=== PATIENT | male | born 1955 | race Caucasian/White ===

== ENCOUNTER 2024-11-06 14:49 | Outpatient (AMB) | payer MEDICARE, SELFPAY ==
--- NOTE | 2024-11-06 14:56 | MHC.PC.OV ---
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 Intake Note: patient is scheduled to establish care with pcp Security Attendant Required: No Allergies No Known Allergies Allergy (Verified 11/06/24 15:03) Medication List - Last Reconciled 11/06/24 by Roman Baugh MD No Known Home Meds Tobacco use date assessed: 11/06/24 Fall risk assessment: No Falls in past year Last assessed Fall Risk: 11/06/24 Dental Screening Dental Screen Date: 11/06/24 Did you have a dental visit in the last 12 months?: Yes Did you have a dental problem in the last 6 months where you did not have access to dental care?: No Was dental information given to patient?: No 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 ?? Prior PCP:? [facility] Last office visit/CPE:? 2 yrs Acute issue(s):? Elevated Lipids ?? PMHx:? Mildly elevated Cholesterol, Allergies SurgHx:? Hernia repair, Back Surgery x 2, L Meniscus x 2 FHx:?Mom: Brain CA. Dad: Aortic Aneurysm rupture. Sister: Alzhiemers. Brother: a-fib. Brother: Parkinsons. SocHx:? Nonsmoker. EtOH: 2-3 dr per day. No drugs PFSH Medical History Tear of meniscus of left knee Ruptured lumbar disc Surgical History H/O hernia repair Social History Housing: House Patient Tobacco Use Status: Never used Tobacco e-Cigarette/Vaping Use: Currently Using Frequency of e-Cigarette/Vaping Use: cannabis Use of substances other than those prescribed or required for medical reasons: No service: No Current occupational status: retired Current occupational exposures/hazards: No Cognitive needs: No Hearing needs: Yes Vision needs: Yes Questionnaire PHQ-9 Over the last 2 weeks, how often have you been bothered by any of the following problems? 1. Little interest or pleasure in doing things: not at all 2. Feeling down, depressed, or hopeless: not at all 3. Trouble falling or staying asleep, or sleeping too much: not at all 4. Feeling tired or having little energy: not at all 5. Poor appetite or overeating: not at all 6. Feeling bad about yourself - or that you are a failure or have let yourself or your family down: not at all 7. Trouble concentrating on things, such as reading the newspaper or watching television: not at all 8. Moving or speaking so slowly that other people could have noticed. Or the opposite - being so fidgety or restless that you have been moving around a lot more than usual: not at all 9. Thoughts that you would be better off or of hurting yourself in some way: not at all Total score: 0 Depression Screening Interpretation: Negative Depression Screening Done: Yes 40248 - PHQ-9 Billing: Yes Source: Developed by Drs. Vic Gaines, Komal Shaw, Skip Al and colleagues, with an educational wild from [facility]. Thrive Questionnaire Date Thrive assessed: 11/06/24 I am a: Patient What is your living situation today?: I have a steady place to live Within the past 12 months, did the food you bought not last and you didn't have the money to get more?: Never true Within the past 12 months, did you worry whether your food would run out before you got money to buy more?: Never true Do you have trouble paying for medicines?: No Do you have trouble getting transportation to medical appointments?: No Do you have trouble paying your heating and electricity bill?: No Do you have trouble taking care of your child, family member or friend?: No Do you have trouble with day-to-day activities such as bathing, preparing meals, shopping, managing finances, etc.?: No Are you currently unemployed and looking for a job?: No Are you interested in more education?: No Please select the resources that you would like help with: None Currently or been in a relationship where the following occur: No concerns reported THRIVE Score: 0 AUDIT C Alcohol Use Questionnaire (AUDIT-C) 1. How often do you have a drink containing alcohol?: 4 or more times a week 2. How many drinks containing alcohol do you have on a typical day when you are drinking?: 3 or 4 3. How often do you have six or more drinks on one occasion?: Never Total Score: 5 Score Reviewed/Action Taken: Yes AARON-7 AMB Questionnaire AARON-7 Date AARON - 7 assessed: 11/06/24 Feeling nervous, anxious, or on edge: 0 = Not at all Not being able to stop or control worryin = Not at all Worrying too much about different things: 0 = Not at all Trouble relaxin = Not at all Being so restless that it is hard to sit still: 0 = Not at all Becoming easily annoyed or irritable: 0 = Not at all Feeling afraid as if something awful might happen: 0 = Not at all Total AARON-7 score (0-4 normal; 5-9 mild; 10-14 moderate; 15-21 severe): 0 Source: Developed by Drs. Vic Gaines, Komal Shaw, Skip Al and colleagues, with an educational wild from [facility]. AARON-7 Assessment Billing AARON-7 Assessment Tool: AARON-7 Assessment 93039 Review of Systems Const Denies chills, Denies fatigue, Denies fever(s), Denies headache(s) and Denies weakness ENT Denies dizziness and Denies headache(s) Card Denies chest pain, Denies lightheadedness, Denies dyspnea and Denies other (Palpitations) Resp Denies cough, Denies dyspnea, Denies wheezing and Denies other ( shortness of breath) Musc Denies numbness and Denies tingling Neuro Denies dizziness, Denies headache(s), Denies numbness, Denies tingling, Denies paresthesias and Denies weakness Psych Denies anxiety and Denies depression Endo Denies fatigue Aller/Immun Denies wheezing Physical exam (Primary Care) Vital Signs: Last Vital Signs Temp 98.3 F 11/06/24 15:04 Pulse 64 11/06/24 15:04 Resp 14 11/06/24 15:04 BP 120/64 11/06/24 15:04 Pulse Ox 96 11/06/24 15:04 Oxygen Delivery Method Room Air 11/06/24 15:04 BMI result Body Mass Index 25.8 Tobacco/Smoking Status: Tobacco use Status Tobacco use date assessed 11/06/24 11/06/24 15:07 Patient Tobacco Use Status Never used Tobacco 11/06/24 15:07 e-Cigarette/Vaping Use Currently Using 11/06/24 15:07 PHQ-9: PHQ-9 Score PHQ-9: Total score 0 11/06/24 15:16 Depression Screening Interpretation: Negative Thrive Assessment: Date of Thrive Assessment Date Thrive assessed 11/06/24 11/06/24 15:01 Currently or been in a relationship where the following occur: No concerns reported Const General: no acute distress and well developed Nutritional Appearance: well nourished Orientation/consciousness: patient oriented x3 HENMT Head: Yes normocephalic and Yes atraumatic Eyes General: appearance normal, both eyes and all related structures Pupils: Equal, round and reactive pupils present EOM: EOMs intact bilaterally Resp Effort & Inspection: normal respiratory effort Auscultation: clear to auscultation bilaterally Cardio Rate: regular rate Rhythm: regular rhythm Heart sounds: S1 normal heart sound present, S2 normal heart sound present, no gallops, no murmurs and no rubs Neuro General: patient oriented x3 and gait normal Cranial nerves: Yes Equal, round and reactive pupils present Psych Affect: normal affect Coding Level of Care Code New Pt Level 3 (13647) Diagnoses Elevated LDL cholesterol level E78.00 Allergies T78.40XA H/O hernia repair Z98.890; Z87.19 Immunization counseling Z71.85 Laboratory exam ordered as part of routine general medical examination Z00.00 Additional Codes AARON-7 Assessment Billing - AARON-7 Assessment Tool: AARON-7 Assessment 45787 ([id number]) PHQ-9 - 85520 - PHQ-9 Billing: Yes ([id number]) Assessment & Plan Assessment & Plan (1) Elevated LDL cholesterol level: Code(s): E78.00 - Pure hypercholesterolemia, unspecified Category: Medical (2) Allergies: Code(s): T78.40XA - Allergy, unspecified, initial encounter Category: Medical (3) H/O hernia repair: Code(s): Z98.890 - Other specified postprocedural states; Z87.19 - Personal history of other diseases of the digestive system Category: Surgical (4) Immunization counseling: Code(s): Z71.85 - Encounter for immunization safety counseling Category: Medical (5) Laboratory exam ordered as part of routine general medical examination: Code(s): Z00.00 - Encounter for general adult medical examination without abnormal findings Category: Medical Plan 69-year-old?male?presents?to?establish?care Patient?notes?history?of?elevated?lipids Will?recheck?with?his?lab?drawn Reviewed?immunizations.??He?is?up-to-date Orders: Orders Lipid Panel Today Z00.00 - Encounter for general adult medical examination without abnormal findings Prostate Specific Antigen Scr Today Z12.5 - Encounter for screening for malignant neoplasm of prostate Comprehensive [place]. Panel Fast Today Z00.00 - Encounter for general adult medical examination without abnormal findings Complete Blood Count Auto Diff Today Z00.00 - Encounter for general adult medical examination without abnormal findings Microalbumin, Random (w Creat) Today I10 - Essential (primary) hypertension UA CC w/rflx Micro + Cult Today Z00.00 - Encounter for general adult medical examination without abnormal findings TSH reflex Free T4 Today Z00.00 - Encounter for general adult medical examination without abnormal findings
[2024-11-06 15:04] VITALS: BP 120/64; PULSE 64; RESP 14; TEMP 36.8; O2SAT 96; BMI 25.8
== END 2024-11-06 15:33 | disposition home or self-care (01) ==
PROVIDERS: PCP Family Medicine; Visit Provider Family Medicine
DX: E78.00 Pure hypercholesterolemia, unspecified (principal); T78.40XA Allergy, unspecified, initial encounter; Z98.890 Other specified postprocedural states; Z87.19 Personal history of other diseases of the digestive system; Z71.85 Encounter for immunization safety counseling; Z00.00 Encounter for general adult medical examination without abnormal findings

== ENCOUNTER → 2024-11-06 14:49 | Outpatient (BNVA) | payer MEDICARE, SELFPAY | PROVIDERS: PCP Family Medicine; Visit Provider Family Medicine | DX: Z00.01 Encounter for general adult medical examination with abnormal findings (principal); E78.00 Pure hypercholesterolemia, unspecified; T78.40XA Allergy, unspecified, initial encounter; Z71.85 Encounter for immunization safety counseling; Z87.19 Personal history of other diseases of the digestive system; Z98.890 Other specified postprocedural states | CPT/HCPCS: 96127; 99202 ==

== ENCOUNTER 2025-01-27 08:05 | Outpatient (REF) | payer MEDICARE, SELFPAY ==
[2025-01-27 11:42] LABS: MANUAL DIFF FLAG NO
[2025-01-27 11:57] LABS: Hematocrit 46.1 % (42.0-52.0); Hemoglobin 15.0 g/dl (14.0-18.0); Imm Gran Abs Auto 0.02 X10*3/uL (0.00-0.03); Imm Gran Pct Auto 0.3 % (0.0-0.4); Lymphocytes Absolute Auto 1.4 X10*3/uL (1.2-4.9); Mean Corpuscular HGB Conc 32.5 g/dl (31.0-36.0); Mean Corpuscular Hemoglobin 30.5 pg (27.0-33.0); Mean Corpuscular Volume 93.9 fL (80.0-98.0); NRBC Abs Auto 0.000 X10*3/uL (0.0-0.012); NRBC Pct Auto 0.0 /100WBC (0.0-0.2); Platelet Count 266 X10*3/uL (160-400); Red Blood Count 4.91 X10*6/uL (4.60-5.80); White Blood Count 6.4 X10*3/uL (4.8-10.8)
[2025-01-27 12:38] LABS: Alanine Aminotransferase 21 U/L (0-40); Albumin Level 4.3 g/dL (3.5-5.0); Alkaline Phosphatase 58 U/L (39-117); Anion Gap 10 (12-20); Aspartate Amino Transferase 31 U/L (5-37); Blood Urea Nitrogen 19 mg/dL (9-16); Calcium 8.8 mg/dL (8.4-10.2); Carbon Dioxide 27 mmol/L (22-29); Chloride 109 mmol/L (96-108); Cholesterol 198 mg/dL (<200); Estimated Glomerular Filt Rate > 60; HDL Cholesterol 68 mg/dL (>40); Potassium 4.4 mmol/L (3.3-5.1); Sodium 142 mmol/L (135-145); Total Protein 7.2 g/dL (6.5-8.0); Triglycerides 90 mg/dL (<150)
[2025-01-27 15:12] LABS: Appearance Urine Turbid; Glucose Urine UA Negative (Negative); PH 5.5 (5.0-9.0); Specific Gravity - Urine 1.025 (1.005-1.025); UMIC TRIGGER UACC YES
[2025-01-27 15:19] LABS: UACC Culture Trigger YES
[2025-01-27 16:38] LABS: Microalbum/Creatinine Ratio Ur 5.8 ug/mg cr (<30)
== END 2025-01-27 08:06 | disposition home or self-care (01) ==
LOC: HO.WFDLDS 08:05
PROVIDERS: Visit Provider Family Medicine
DX: Z00.00 Encounter for general adult medical examination without abnormal findings (principal); Z12.5 Encounter for screening for malignant neoplasm of prostate; I10 Essential (primary) hypertension; R82.90 Unspecified abnormal findings in urine
CPT/HCPCS: 36415; 80053; 80061; 81001; 82043; 82570; 84153; 84443; 85025; 87086

== ENCOUNTER 2025-02-25 08:10 | Outpatient (REF) | payer MEDICARE, SELFPAY ==
--- OUTSIDE RECORDS SUMMARY | 2025-02-25 08:16 | XMS_ITS ---
Author Name [facility] Organization Unknown Care Team Organization Name Specialty Phone Email Start Date End Da thomas [facility] 05/24/2022 4
[2025-02-25 11:27] LABS: Appearance Urine Clear; Glucose Urine UA Negative (Negative); PH 8.0 (5.0-9.0); Specific Gravity - Urine 1.015 (1.005-1.025); UMIC TRIGGER UACC YES
== END 2025-02-25 08:11 | disposition home or self-care (01) ==
LOC: HO.WFDLDS 08:10
PROVIDERS: Visit Provider Family Medicine
DX: Z00.00 Encounter for general adult medical examination without abnormal findings (principal); R97.20 Elevated prostate specific antigen [PSA]; Z12.5 Encounter for screening for malignant neoplasm of prostate
CPT/HCPCS: 36415; 81001; 84153

== ENCOUNTER 2025-02-28 11:47 | Outpatient (AMB) | payer MEDICARE, SELFPAY ==
--- NOTE | 2025-02-28 11:50 | A.OFFPC_ITS ---
Vital Signs 02/28/25 11:56 Height 6 ft Weight 189 lb 4 oz BMI 25.7 BP 120/84 Blood Pressure Location Rt brachial Position Sitting Respiration 14 Pulse 68 Pulse Source Pulse Oximeter Temp 98.1 F Temp Source Temporal Artery Scan Pulse Oximetry (%) 97 Oxygen Delivery Method Room Air Intake Visit Reasons: CPE with f.u labs and health maint. Intake Note: David presents in his office today for his annual physical, lab review and health maintenance. Allergies No Known Allergies Allergy (Verified 02/28/25 11:54) Medication List - Last Reconciled 02/28/25 by Roman Baugh MD cetirizine (Zyrtec) 10 mg PO DAILY PRN Tobacco use date assessed: 02/28/25 Dental Screening Dental Screen Date: 02/28/25 Did you have a dental visit in the last 12 months?: Yes Did you have a dental problem in the last 6 months where you did not have access to dental care?: No Was dental information given to patient?: Patient has dentist HPI CPE with f.u labs and health maint. HPI Details 69 y/o male presents for a CPE with f/u labs and health maint. Labs drawn 01/27/25. Reviewed labs with pt. Fasting glucose elevated at 105. Triglycerides 90. TC 198. LDL 112. HDL 68. PSA elevated at 6.57. Repeat PSA 3.86. A1c today 02/28/25 is Reports a slight tremor on his R hand. He notes FHx of lewy body dementia. HPI Comments History of Present Illness Details Documentation assistance for Roman Baugh MD, was provided by Anthony Stevenson,? Culture Room Worker on 02/28/2025 at 12:49 PM EST. I, Dr. Baugh, have read, observed, and verified documentation. ? PFSH Medical History (Updated 02/28/25 @ 12:55 by Anthony Stevenson) Tear of meniscus of left knee Ruptured lumbar disc Surgical History (Updated 11/06/24 @ 15:23 by Anthony Stevenson) H/O hernia repair Social History (Updated 02/28/25 @ 11:55 by Fely Engel MA) Housing: House Alcohol intake: current Patient Tobacco Use Status: Never used Tobacco e-Cigarette/Vaping Use: Never Used Second Hand Smoke Exposure: No service: No Current occupational status: retired Current occupational exposures/hazards: No Cognitive needs: No Hearing needs: Yes Vision needs: Yes Questionnaire PHQ-9 Over the last 2 weeks, how often have you been bothered by any of the following problems? 1. Little interest or pleasure in doing things: not at all 2. Feeling down, depressed, or hopeless: not at all 3. Trouble falling or staying asleep, or sleeping too much: not at all 4. Feeling tired or having little energy: not at all 5. Poor appetite or overeating: not at all 6. Feeling bad about yourself - or that you are a failure or have let yourself or your family down: not at all 7. Trouble concentrating on things, such as reading the newspaper or watching television: not at all 8. Moving or speaking so slowly that other people could have noticed. Or the opposite - being so fidgety or restless that you have been moving around a lot more than usual: not at all 9. Thoughts that you would be better off or of hurting yourself in some way: not at all Total score: 0 Depression Screening Interpretation: Negative Depression Screening Done: Yes 09039 - PHQ-9 Billing: Yes Source: Developed by Drs. Vic Gaines, Komal Shaw, Skip Al and colleagues, with an educational wild from [employer]. Thrive Questionnaire Date Thrive assessed: 02/28/25 I am a: Patient What is your living situation today?: I have a steady place to live Within the past 12 months, did the food you bought not last and you didn't have the money to get more?: Never true Within the past 12 months, did you worry whether your food would run out before you got money to buy more?: Never true Do you have trouble paying for medicines?: No Do you have trouble getting transportation to medical appointments?: No Do you have trouble paying your heating and electricity bill?: No Do you have trouble taking care of your child, family member or friend?: No Do you have trouble with day-to-day activities such as bathing, preparing meals, shopping, managing finances, etc.?: No Are you currently unemployed and looking for a job?: No Are you interested in more education?: No Please select the resources that you would like help with: None Currently or been in a relationship where the following occur: No concerns reported THRIVE Score: 0 AUDIT C Alcohol Use Questionnaire (AUDIT-C) 1. How often do you have a drink containing alcohol?: 2-3 times a week 2. How many drinks containing alcohol do you have on a typical day when you are drinking?: 3 or 4 3. How often do you have six or more drinks on one occasion?: Never Total Score: 4 AARON-7 AMB Questionnaire AARON-7 Date AARON - 7 assessed: 02/28/25 Feeling nervous, anxious, or on edge: 1 = Several days Not being able to stop or control worryin = Not at all Worrying too much about different things: 0 = Not at all Trouble relaxin = Not at all Being so restless that it is hard to sit still: 0 = Not at all Becoming easily annoyed or irritable: 0 = Not at all Feeling afraid as if something awful might happen: 0 = Not at all Total AARON-7 score (0-4 normal; 5-9 mild; 10-14 moderate; 15-21 severe): 1 Source: Developed by Drs. Vic Gaines, Komal Shaw, Skip Al and colleagues, with an educational wild from [employer]. AARON-7 Assessment Billing AARON-7 Assessment Tool: AARON-7 Assessment 63460 Review of Systems Const Denies chills, Denies fatigue, Denies fever(s), Denies headache(s) and Denies weakness Eyes Denies change in vision ENT Denies dizziness, Denies headache(s), Denies hearing loss, Denies nasal congestion, Denies sinus pain, Denies sinus pressure and Denies sore throat Card Denies chest pain, Denies lightheadedness, Denies dyspnea and Denies other (palpitations) Resp Denies cough, Denies dyspnea and Denies wheezing GI Denies abdominal pain, Denies melena, Denies hematochezia, Denies change in bowel habits, Denies dyspepsia and Denies nausea Denies hematuria and Denies dysuria Musc Denies abnormal gait, Denies myalgias, Denies arthralgias, Denies numbness and Denies tingling Skin/Breast Denies rash, Denies unusual bruising and Denies wounds Neuro Denies abnormal gait, Denies dizziness, Denies headache(s), Denies memory loss, Denies numbness, Denies Sensory deficit (Neuro), Denies tingling and Denies weakness Psych Denies anxiety, Denies depression and Denies memory loss Endo Denies cold intolerance, Denies fatigue, Denies heat intolerance, Denies polydipsia and Denies polyuria Conor/Lymph Denies easy bleeding and Denies easy bruising Aller/Immun Denies wheezing Physical exam (Primary Care) Vital Signs: Last Vital Signs Temp 98.1 F 02/28/25 11:56 Pulse 68 02/28/25 11:56 Resp 14 02/28/25 11:56 BP 120/84 02/28/25 11:56 Pulse Ox 97 02/28/25 11:56 Oxygen Delivery Method Room Air 02/28/25 11:56 BMI result Body Mass Index 25.7 Tobacco/Smoking Status: Tobacco use Status Tobacco use date assessed 02/28/25 02/28/25 12:00 Patient Tobacco Use Status Never used Tobacco 02/28/25 11:55 e-Cigarette/Vaping Use Never Used 02/28/25 11:55 PHQ-9: PHQ-9 Score PHQ-9: Total score 0 02/28/25 12:01 Depression Screening Interpretation: Negative Thrive Assessment: Date of Thrive Assessment Date Thrive assessed 02/28/25 02/28/25 11:52 Currently or been in a relationship where the following occur: No concerns reported Const General: no acute distress, well developed, alert and awake Nutritional Appearance: well nourished Orientation/consciousness: patient oriented x3 HENMT Head: Yes normocephalic and Yes atraumatic Ears: hearing grossly normal bilaterally and TM's normal bilaterally General nose exam: Normal external nose present and Normal nares present Mouth: Normal oral and palatal mucosa present and moist mucous membranes Teeth and gingiva: dentition normal Throat: Yes posterior oropharynx normal Eyes General: appearance normal, both eyes and all related structures Pupils: Equal, round and reactive pupils present and Pupil accommodation reflex normal EOM: EOMs intact bilaterally Neck Neck: Yes normal visual inspection, Yes no lymphadenopathy and Yes trachea midline Thyroid: Thyroid normal Carotids: no bruits Lymphatic: no lymphadenopathy noted Chest Chest palpation & inspection: normal inspection of the chest Resp Effort & Inspection: normal respiratory effort Auscultation: clear to auscultation bilaterally Cardio Rate: regular rate Rhythm: regular rhythm Heart sounds: S1 normal heart sound present, S2 normal heart sound present, no gallops, no murmurs and no rubs Bruits: no abdominal aortic bruits and no carotid bruits GI Palpation (GI): No Abdominal aortic bruit present, Soft to palpation, nontender, No hepatosplenomegaly present and No Rebound tenderness present Auscultation: normal bowel sounds General: Yes no CVA tenderness Back/Spine/Pelvis Back: no CVA tenderness Cervical Spine: cervical ROM normal and No Cervical spine tenderness Thoracic/Lumbar Spine: thoraco-lumbar ROM normal, No pain with thoraco-lumbar ROM, No thoracic spinal tenderness and No lumbar spinal tenderness Skin Lesions: no lesions Rashes: no rashes Trauma: no lacerations or abrasions Wounds: no wounds Nails: normal Neuro General: patient oriented x3 Cranial nerves: Yes Equal, round and reactive pupils present Cognition (Neuro): normal cognition Gait exam (Neuro): Normal gait present Motor exam (neuro): 5/5 motor strength present throughout Sensory Exam: No Sensory deficit (Neuro) Deep tendon reflexes (DTR's): Right patellar reflex intensity grade: 2+ and Left patellar reflex intensity grade: 2+ Extrem General: Yes normal to inspection and No edema Psych Appearance: grossly normal Affect: normal affect Attitude: cooperative Thought process: Normal thought process present Results AMB Hemoglobin A1c AMB Hemoglobin A1c 5.2 % Last Edit by Fely Engel MA on 02/28/25 12:51 Coding Level of Care Code Est Pt Level 3 (42413) Est Pt Prev Care >65y(25885) Diagnoses Adult general medical exam Z00.00 Elevated LDL cholesterol level E78.00 Elevated PSA R97.20 Tremor R25.1 Elevated fasting blood sugar R73.01 Family history of dementia Z81.8 Screening for prostate cancer Z12.5 Screening for colon cancer Z12.11 Additional Codes AARON-7 Assessment Billing - AARON-7 Assessment Tool: AARON-7 Assessment 96069 ([id number]) PHQ-9 - 80308 - PHQ-9 Billing: Yes ([id number]) Assessment & Plan Assessment & Plan (1) Adult general medical exam: Code(s): Z00.00 - Encounter for general adult medical examination without abnormal findings Category: Medical Plan: 69-year-old male presents for complete physical exam Encouraged healthy diet with active lifestyle and plenty of exercise (2) Elevated LDL cholesterol level: Code(s): E78.00 - Pure hypercholesterolemia, unspecified Category: Medical Plan: Mildly elevated LDL cholesterol Encouraged a diet lower in saturated fats and cholesterol (3) Elevated PSA: Code(s): R97.20 - Elevated prostate specific antigen [PSA] Category: Medical Plan: PSA elevated and on repeat is at upper range of normal. He denies any urinary symptoms. Will recheck with next blood draw 6 months. (4) Tremor: Code(s): R25.1 - Tremor, unspecified Category: Medical Plan: Patient is spouse notes tremor at right arm. On exam patient has fine tremor bilateral hands Patient notes that he and brother with tremor and diagnosed with Lewy body dementia Referred to neurology (5) Elevated fasting blood sugar: Code(s): R73.01 - Impaired fasting glucose Category: Medical Plan: Mildly elevated fasting blood sugar A1c 5.5% is towards upper limits of normal Encouraged a diet lower in sugars and starches Will monitor (6) Family history of dementia: Code(s): Z81.8 - Family history of other mental and behavioral disorders Category: Medical Plan: As above (7) Screening for prostate cancer: Code(s): Z12.5 - Encounter for screening for malignant neoplasm of prostate Category: Medical Plan: As above (8) Screening for colon cancer: Code(s): Z12.11 - Encounter for screening for malignant neoplasm of colon Category: Medical Plan: Patient is due for repeat colonoscopy in 2025 Referred back to his facilities maintenance manager, Carolyn Ashford Orders: Orders Prostate Specific Antigen Scr Today R97.20 - Elevated prostate specific antigen [PSA], Z12.5 - Encounter for screening for malignant neoplasm of prostate Comprehensive [place]. Panel Fast Today E78.00 - Pure hypercholesterolemia, unspecified, Z00.00 - Encounter for general adult medical examination without abnormal findings Hemoglobin A1c Today R73.01 - Impaired fasting glucose AMB Hemoglobin A1c Today R73.01 - Impaired fasting glucose, Z13.9 - Encounter for screening, unspecified Lipid Panel Today E78.00 - Pure hypercholesterolemia, unspecified, Z00.00 - Encounter for general adult medical examination without abnormal findings Referrals Gastroenterology Referral Z12.11 - Encounter for screening for malignant neoplasm of colon Neurology Referral R25.1 - Tremor, unspecified
[2025-02-28 11:56] VITALS: BP 120/84; PULSE 68; RESP 14; TEMP 36.7; O2SAT 97; BMI 25.7
== END 2025-02-28 12:54 | disposition home or self-care (01) ==
LOC: HO.HMCFM 11:48
PROVIDERS: PCP Family Medicine; Visit Provider Family Medicine
DX: Z00.00 Encounter for general adult medical examination without abnormal findings (principal); E78.00 Pure hypercholesterolemia, unspecified; R97.20 Elevated prostate specific antigen [PSA]; R25.1 Tremor, unspecified; R73.01 Impaired fasting glucose; Z81.8 Family history of other mental and behavioral disorders; Z12.5 Encounter for screening for malignant neoplasm of prostate; Z12.11 Encounter for screening for malignant neoplasm of colon

== ENCOUNTER → 2025-02-28 11:47 | Outpatient (BNVA) | payer MEDICARE, SELFPAY | PROVIDERS: PCP Family Medicine; Visit Provider Family Medicine | DX: Z00.00 Encounter for general adult medical examination without abnormal findings (principal); E78.00 Pure hypercholesterolemia, unspecified; R97.20 Elevated prostate specific antigen [PSA]; R25.1 Tremor, unspecified; R73.01 Impaired fasting glucose; Z81.8 Family history of other mental and behavioral disorders | CPT/HCPCS: 83036; 96127; 99212; 99397 ==